=== PATIENT | female | born 1955 | race Caucasian/White ===

== ENCOUNTER 2016-11-09 20:58 | Emergency (ER) | payer BC ==
[~2016-11-09] VITALS: Ht 160 cm; Wt 63.6 kg
[2016-11-09] MEDS ORDERED: CALCIUM 600 MG-1 TAB PO (21:14)
[2016-11-09] MEDS ORDERED: EFFEXOR XR150 M1 PO (21:14)
[2016-11-09] MEDS ORDERED: MULTIVITAMIN1 SGL PO (21:15)
[2016-11-09] MEDS ORDERED: NORCO 325 MG-51 TAB PO (23:08)
[2016-11-09 23:20] VITALS: BP 141/77
== END 2016-11-09 23:20 | disposition home or self-care (01) ==
LOC: ED 20:58
DX: S52.592A Other fractures of lower end of left radius, initial encounter for closed fracture (principal); S52.612A Displaced fracture of left ulna styloid process, initial encounter for closed fracture; W01.198A Fall on same level from slipping, tripping and stumbling with subsequent striking against other object, initial encounter; Y92.89 Other specified places as the place of occurrence of the external cause
CPT/HCPCS: J1885

== ENCOUNTER → 2017-07-25 | Outpatient (CLI) | payer BC ==
[~2017-07-25] MED LIST: CALCIUM 600 MG-1 TAB PO; EFFEXOR XR150 M1 PO; MULTIVITAMIN1 SGL PO; NORCO 325 MG-51 TAB PO
== END ==
LOC: RAD 08:52
DX: R91.8 Other nonspecific abnormal finding of lung field (principal); R05 Cough
CPT/HCPCS: Q9967

== ENCOUNTER → 2017-09-01 | Day surgery (SDC) | payer BC | LOC: MSO 08:14 | DX: Z12.11 Encounter for screening for malignant neoplasm of colon (principal); D12.5 Benign neoplasm of sigmoid colon; D12.8 Benign neoplasm of rectum; K57.30 Diverticulosis of large intestine without perforation or abscess without bleeding; I10 Essential (primary) hypertension; J44.9 Chronic obstructive pulmonary disease, unspecified; F17.210 Nicotine dependence, cigarettes, uncomplicated; F32.9 Major depressive disorder, single episode, unspecified; Z88.0 Allergy status to penicillin | CPT/HCPCS: 00811; J2704; J3010; J7120 ==

== ENCOUNTER → 2019-01-07 | Outpatient (CLI) | payer BC ==
[~2019-01-07] MED LIST changes: +ADULT ASPIRIN R81 MG PO; +FOSAMAX 70MG TA70 MG PO; +LOPRESSOR 225 MG/TAB PO
== END ==
LOC: RAD 10:49
DX: E04.9 Nontoxic goiter, unspecified (principal)

== ENCOUNTER 2019-01-20 19:14 | Emergency (ER) | payer BC ==
[2019-01-20 19:20] VITALS: BP 160/80
== END 2019-01-20 19:27 | disposition home or self-care (01) ==
LOC: ED 19:14
DX: S91.311D Laceration without foreign body, right foot, subsequent encounter (principal)

== ENCOUNTER → 2019-07-14 | Outpatient (CLI) | payer BC | LOC: RAD 11:20 → MAMMO 11:30 | DX: Z13.820 Encounter for screening for osteoporosis (principal); M85.88 Other specified disorders of bone density and structure, other site; M85.852 Other specified disorders of bone density and structure, left thigh; M85.851 Other specified disorders of bone density and structure, right thigh; Z78.0 Asymptomatic menopausal state ==

== ENCOUNTER → 2020-06-06 | Outpatient (CLI) | payer BC | LOC: MAMMO 10:34 | DX: Z12.31 Encounter for screening mammogram for malignant neoplasm of breast (principal) ==

== ENCOUNTER → 2022-01-11 | Outpatient (CLI) | payer BC | LOC: MAMMO 09:33 | DX: Z13.820 Encounter for screening for osteoporosis (principal); Z12.31 Encounter for screening mammogram for malignant neoplasm of breast; M85.80 Other specified disorders of bone density and structure, unspecified site ==

== ENCOUNTER → 2023-01-06 | Day surgery (SDC) | payer MEDICARE, OTHER | END | disposition home or self-care (01) | LOC: MSO 08:34 | DX: Z12.11 Encounter for screening for malignant neoplasm of colon (principal); K63.5 Polyp of colon | CPT/HCPCS: 00811; J2704; J3010; J7120 ==

== ENCOUNTER 2023-07-31 13:00 | Outpatient (RCR) | payer MEDICARE, OTHER | END 2023-08-26 | disposition home or self-care (01) | LOC: CARDREHAB | DX: Z48.812 Encounter for surgical aftercare following surgery on the circulatory system (principal); Z95.1 Presence of aortocoronary bypass graft; I25.2 Old myocardial infarction ==

== ENCOUNTER 2023-08-27 12:58 | Outpatient (RCR) | payer MEDICARE, OTHER | END 2023-09-26 | disposition home or self-care (01) | LOC: CARDREHAB | DX: Z48.812 Encounter for surgical aftercare following surgery on the circulatory system (principal); Z95.1 Presence of aortocoronary bypass graft; I25.2 Old myocardial infarction ==